=== PATIENT | female | born 1995 | race African-American/Black ===

== ENCOUNTER 2021-01-04 14:44 | Emergency (ER) | payer SELFPAY ==
[~2021-01-04] VITALS: Ht 157.5 cm; Wt 87.9 kg
[2021-01-04 14:45] VITALS: BP 133/74
== END 2021-01-04 19:15 | disposition left against medical advice (07) ==
LOC: M ED 14:44
DX: Z53.21 Procedure and treatment not carried out due to patient leaving prior to being seen by health care provider (principal)

== ENCOUNTER 2021-05-26 10:58 | Outpatient (CLI) | payer SELFPAY ==
[~2021-05-26] VITALS: Ht 154.9 cm; Wt 93.2 kg
[2021-05-26] MEDS ORDERED: MULTTAB20 PO (11:16)
[2021-05-26] MEDS ORDERED: HOME MED LIST COMPLETE! XX SCH (11:20)
[2021-05-26 13:02] LABS: BASO % 0.1 % (0.0-1.0); EOS % 0.5 % (0.0-3.0); HEMATOCRIT 31.1 % (36.0-47.0); HEMOGLOBIN 10.1 g/dl (12.0-15.5); LYMPH # 1.5 10^3/uL (1.5-5.0); LYMPH % 19.7 % (24.0-44.0); MEAN CORPUSCULAR HGB CONC 32.5 g/dl (32.0-36.5); MEAN CORPUSCULAR VOLUME 86.1 fl (80.0-96.0); MONO # 0.6 10^3/uL (0.0-0.8); MONO % 8.6 % (2.0-8.0); NEUTROPHILS # 5.2 10^3/uL (1.5-8.5); NEUTROPHILS % 70.7 % (36.0-66.0); PLATELET COUNT, AUTOMATED 227 10^3/uL (150-450); RED BLOOD COUNT 3.61 10^6/uL (4.00-5.40); WHITE BLOOD COUNT 7.4 10^3/uL (4.0-10.0)
[2021-05-26 14:21] LABS: HEPATITIS C VIRUS ABY INDEX 0.1 INDEX (<0.8); HIV 1&2 SCREEN CENTAUR NEGATIVE (NEGATIVE)
== END 2021-05-26 13:25 | disposition home or self-care (01) ==
LOC: M LDO 10:58
PROVIDERS: ATTEND Obstetrics & Gynecology
DX: O60.03 Preterm labor without delivery, third trimester (principal); O26.892 Other specified pregnancy related conditions, second trimester; R10.2 Pelvic and perineal pain; O09.32 Supervision of pregnancy with insufficient antenatal care, second trimester; Z3A.25 25 weeks gestation of pregnancy
CPT/HCPCS: 36415; 59025; 76811; 76820; 81001; 85025; 86762; 86780; 86803; 86850; 86900; 86901; 87340; 87389; G0378; G0463

== ENCOUNTER 2022-06-30 17:47 | Emergency (ER) | payer OTHER, SELFPAY ==
[~2022-06-30] VITALS: Ht 157.5 cm; Wt 86.8 kg
[~2022-06-30 17:47] MED LIST: MULTTAB20 PO
[2022-06-30] MEDS ORDERED: IBUP-1022 PO (19:26)
[2022-06-30 19:39] VITALS: BP 138/80
== END 2022-06-30 19:42 | disposition home or self-care (01) ==
LOC: M ED 17:47
DX: J06.9 Acute upper respiratory infection, unspecified (principal); R56.9 Unspecified convulsions

== ENCOUNTER 2022-07-29 08:51 | Emergency (ER) | payer MEDICAID, SELFPAY ==
[~2022-07-29] VITALS: Ht 157.5 cm; Wt 85.2 kg
[~2022-07-29 08:51] MED LIST changes: +IBUP-1022 PO
[2022-07-29 09:52] LABS: APPEARANCE, URINE CLEAR (CLEAR); BACTERIA, URINE AUTO NEGATIVE (NEGATIVE); BILIRUBIN, URINE AUTO NEGATIVE (NEGATIVE); BLOOD, URINE BLOOD NEGATIVE (NEGATIVE); COLOR, URINE YELLOW (YELLOW); GLUCOSE, URINE (UA) AUTO NEGATIVE (NEGATIVE); KETONE, URINE AUTO NEGATIVE (NEGATIVE); LEUKOCYTE ESTERASE, URINE AUTO 1+ (NEGATIVE); MUCUS, URINE SMALL (NEGATIVE); NITRITE, URINE AUTO NEGATIVE (NEGATIVE); PROTEIN, URINE AUTO NEGATIVE (NEGATIVE); RBC, URINE AUTO 0 /HPF (0-3); SPECIFIC GRAVITY URINE AUTO 1.012 (1.002-1.035); SQUAMOUS EPITHELIAL CELL UR AU 4 /HPF (0-6); UROBILINOGEN, URINE AUTO 0.2 mg/dL (0.0-2.0); WBC, URINE AUTO 3 /HPF (0-3)
[2022-07-29 10:14] LABS: BASO % 0.3 % (0.0-1.0); HEMATOCRIT 38.9 % (36.0-47.0); HEMOGLOBIN 12.3 g/dl (12.0-15.5); LYMPH # 1.4 10^3/uL (1.5-5.0); LYMPH % 34.9 % (24.0-44.0); MEAN CORPUSCULAR HGB CONC 31.6 g/dl (32.0-36.5); MEAN CORPUSCULAR VOLUME 88.6 fl (80.0-96.0); MONO # 0.3 10^3/uL (0.0-0.8); MONO % 8.7 % (2.0-8.0); NEUTROPHILS # 2.1 10^3/uL (1.5-8.5); NEUTROPHILS % 54.8 % (36.0-66.0); PLATELET COUNT, AUTOMATED 189 10^3/uL (150-450); RED BLOOD COUNT 4.39 10^6/uL (4.00-5.40); WHITE BLOOD COUNT 3.9 10^3/uL (4.0-10.0)
[2022-07-29 11:57] LABS: GC DNA AMPLIFICATION NEGATIVE (NEGATIVE)
[2022-07-29] MEDS ORDERED: AZITHROMYCIN 250MG TABLET PO ONE (12:25)
[2022-07-29] MEDS ORDERED: RHOGAM 300MCG (1500IU) INJ IM ONE ×2 (12:25→12:30)
[2022-07-29 13:17] VITALS: BP 127/83
[2022-07-29] MEDS ORDERED: METR-265 PO (14:21)
== END 2022-07-29 13:46 | disposition home or self-care (01) ==
LOC: M ED 08:51
DX: O99.511 Diseases of the respiratory system complicating pregnancy, first trimester (principal); Z3A.01 Less than 8 weeks gestation of pregnancy; O98.311 Other infections with a predominantly sexual mode of transmission complicating pregnancy, first trimester; O20.9 Hemorrhage in early pregnancy, unspecified; O99.351 Diseases of the nervous system complicating pregnancy, first trimester; G40.909 Epilepsy, unspecified, not intractable, without status epilepticus
CPT/HCPCS: 76801; 81001; 84702; 85025; 86850; 86900; 86901; 87086; 87210; 87428; 87810; 87850; 93976; 96372; 99283; J2790

== ENCOUNTER 2022-08-10 10:56 | Emergency (ER) | payer MEDICAID, SELFPAY ==
[~2022-08-10] VITALS: Ht 157.5 cm; Wt 85.5 kg
[~2022-08-10 10:56] MED LIST changes: +METR-265 PO
[2022-08-10 12:43] LABS: BASO % 0.2 % (0.0-1.0); EOS % 0.4 % (0.0-3.0); HEMATOCRIT 33.6 % (36.0-47.0); HEMOGLOBIN 11.1 g/dl (12.0-15.5); LYMPH # 1.2 10^3/uL (1.5-5.0); LYMPH % 25.8 % (24.0-44.0); MEAN CORPUSCULAR HEMOGLOBIN 28.8 pg (27.0-33.0); MONO # 0.4 10^3/uL (0.0-0.8); MONO % 9.1 % (2.0-8.0); NEUTROPHILS # 2.9 10^3/uL (1.5-8.5); NEUTROPHILS % 64.3 % (36.0-66.0); PLATELET COUNT, AUTOMATED 189 10^3/uL (150-450); RED BLOOD COUNT 3.86 10^6/uL (4.00-5.40); WHITE BLOOD COUNT 4.5 10^3/uL (4.0-10.0)
[2022-08-10 13:05] LABS: BLOOD UREA NITROGEN 9 MG/DL (9-23); CARBON DIOXIDE LEVEL 24 MMOL/L (20-31); CHLORIDE LEVEL 104 MMOL/L (98-107); CREATININE FOR GFR 0.45 MG/DL (0.55-1.30); GLOMERULAR FILTRATION RATE > 60.0 (>60); GLUCOSE, FASTING 74 MG/DL (60-100); POTASSIUM SERUM 3.9 MMOL/L (3.5-5.1); SODIUM LEVEL 137 MMOL/L (136-145)
[2022-08-10 13:32] VITALS: BP 124/66
[2022-08-10 14:55] LABS: HCG, SERUM QUANTITATIVE 342217.1 MIU/ML (<4.2)
== END 2022-08-10 13:32 | disposition home or self-care (01) ==
LOC: M ED 10:56
DX: O20.9 Hemorrhage in early pregnancy, unspecified (principal); Z3A.09 9 weeks gestation of pregnancy

== ENCOUNTER 2022-10-11 13:58 | Emergency (ER) | payer OTHER, SELFPAY ==
[~2022-10-11] VITALS: Ht 157.5 cm; Wt 89.5 kg
[2022-10-11] MEDS ORDERED: D-3-50003 (14:23)
[2022-10-11 14:56] LABS: BASO % 0.2 % (0.0-1.0); EOS % 0.4 % (0.0-3.0); HEMATOCRIT 32.1 % (36.0-47.0); HEMOGLOBIN 10.6 g/dl (12.0-15.5); LYMPH # 1.3 10^3/uL (1.5-5.0); LYMPH % 26.5 % (24.0-44.0); MEAN CORPUSCULAR HEMOGLOBIN 28.6 pg (27.0-33.0); MEAN CORPUSCULAR VOLUME 86.8 fl (80.0-96.0); MONO # 0.3 10^3/uL (0.0-0.8); MONO % 7.2 % (2.0-8.0); NEUTROPHILS # 3.1 10^3/uL (1.5-8.5); NEUTROPHILS % 65.5 % (36.0-66.0); PLATELET COUNT, AUTOMATED 196 10^3/uL (150-450); WHITE BLOOD COUNT 4.7 10^3/uL (4.0-10.0)
[2022-10-11 15:26] LABS: AMPHETAMINES LEVEL URINE NEGATIVE (NEGATIVE); BARBITURATES URINE NEGATIVE (NEGATIVE); PHENCYCLIDINE URINE NEGATIVE (NEGATIVE)
[2022-10-11 15:27] LABS: BENZODIAZEPINES URINE NEGATIVE (NEGATIVE); CANNABINOIDS URINE NEGATIVE (NEGATIVE); COCAINE METABOLITE URINE NEGATIVE (NEGATIVE); METHADONE URINE NEGATIVE (NEGATIVE); OPIATES URINE NEGATIVE (NEGATIVE)
[2022-10-11 15:28] LABS: ALBUMIN 2.8 G/DL (3.2-5.2); ALKALINE PHOSPHATASE 47 U/L (46-116); ALT/SGPT < 9 U/L (7.0-40); AST/SGOT < 8 U/L (<34); BILIRUBIN,DIRECT < 0.1 MG/DL (<0.4); BILIRUBIN,TOTAL 0.3 MG/DL (0.3-1.2); BLOOD UREA NITROGEN 9 MG/DL (9-23); CALCIUM LEVEL 8.7 MG/DL (8.5-10.1); CARBON DIOXIDE LEVEL 23 MMOL/L (20-31); CHLORIDE LEVEL 108 MMOL/L (98-107); CREATININE FOR GFR 0.45 MG/DL (0.55-1.30); GLOMERULAR FILTRATION RATE > 60.0 (>60); GLUCOSE, FASTING 71 MG/DL (60-100); POTASSIUM SERUM 4.5 MMOL/L (3.5-5.1); SODIUM LEVEL 138 MMOL/L (136-145); TOTAL PROTEIN 6.1 G/DL (5.7-8.2)
[2022-10-11] MEDS ORDERED: MAALOX 30 ML SUSP *UDC PO ONE (15:35)
[2022-10-11 15:47] LABS: LIPASE 30 U/L (12-53)
[2022-10-11] MEDS ORDERED: KEPP1TAB PO (17:13)
[2022-10-11] MEDS ORDERED: levETIRAcetam 250MG TABLET (KEPPRA) PO ONE (17:15)
[2022-10-11 17:58] VITALS: BP 123/68; TEMP 97.1; O2SAT 96
== END 2022-10-11 18:01 | disposition home or self-care (01) ==
LOC: EDBD 13:58 → M ED 13:58
DX: O26.892 Other specified pregnancy related conditions, second trimester (principal); R10.13 Epigastric pain; Z3A.17 17 weeks gestation of pregnancy; O99.352 Diseases of the nervous system complicating pregnancy, second trimester

== ENCOUNTER 2022-11-11 04:58 | Outpatient (CLI) | payer OTHER ==
[~2022-11-11] VITALS: Ht 157.5 cm; Wt 92.5 kg
[~2022-11-11 04:58] MED LIST changes: +D-3-50003; +KEPP1TAB PO
[2022-11-11 05:13] VITALS: BP 130/73; TEMP 98
[2022-11-11 06:08] LABS: APPEARANCE, URINE CLOUDY (CLEAR); BACTERIA, URINE AUTO 2+ (NEGATIVE); BILIRUBIN, URINE AUTO NEGATIVE (NEGATIVE); BLOOD, URINE BLOOD NEGATIVE (NEGATIVE); COLOR, URINE YELLOW (YELLOW); GLUCOSE, URINE (UA) AUTO NEGATIVE (NEGATIVE); KETONE, URINE AUTO NEGATIVE (NEGATIVE); LEUKOCYTE ESTERASE, URINE AUTO 2+ (NEGATIVE); MUCUS, URINE SMALL (NEGATIVE); NITRITE, URINE AUTO NEGATIVE (NEGATIVE); PROTEIN, URINE AUTO NEGATIVE (NEGATIVE); RBC, URINE AUTO 3 /HPF (0-3); SPECIFIC GRAVITY URINE AUTO 1.013 (1.002-1.035); SQUAMOUS EPITHELIAL CELL UR AU 32 /HPF (0-6); UROBILINOGEN, URINE AUTO 0.2 mg/dL (0.0-2.0); WBC, URINE AUTO 7 /HPF (0-3)
[2022-11-11 07:35] LABS: GC DNA AMPLIFICATION NEGATIVE (NEGATIVE)
[2022-11-11 07:44] VITALS: BP 123/76; TEMP 98.5
== END 2022-11-11 08:45 | disposition home or self-care (01) ==
LOC: M LDO 04:58
PROVIDERS: ATTEND Advanced Practice Midwife
DX: O26.892 Other specified pregnancy related conditions, second trimester (principal); R10.31 Right lower quadrant pain; O9A.312 Physical abuse complicating pregnancy, second trimester; O98.312 Other infections with a predominantly sexual mode of transmission complicating pregnancy, second trimester; O99.352 Diseases of the nervous system complicating pregnancy, second trimester; O35.2 Maternal care for (suspected) hereditary disease in fetus; Z87.59 Personal history of other complications of pregnancy, childbirth and the puerperium; Z3A.22 22 weeks gestation of pregnancy
CPT/HCPCS: 59025; 81001; 87086; 87661; 87810; 87850; G0463

== ENCOUNTER → 2022-12-15 | Outpatient (CLI) | payer OTHER ==
[2022-12-15 15:01] LABS: HEMATOCRIT 34.5 % (36.0-47.0); MEAN CORPUSCULAR HGB CONC 31.9 g/dl (32.0-36.5); PLATELET COUNT, AUTOMATED 178 10^3/uL (150-450); RED BLOOD COUNT 3.79 10^6/uL (4.00-5.40); WHITE BLOOD COUNT 5.8 10^3/uL (4.0-10.0)
== END ==
LOC: M PLALAB 10:00
PROVIDERS: ATTEND Advanced Practice Midwife
DX: Z34.82 Encounter for supervision of other normal pregnancy, second trimester (principal)

== ENCOUNTER 2023-02-13 15:33 | Outpatient (CLI) | payer OTHER, MEDICAID ==
[2023-02-13] VITALS (8 sets, daily range): BP systolic 117–183; BP diastolic 58–87
[~2023-02-13] VITALS: Ht 154.9 cm; Wt 92.9 kg
[~2023-02-13 15:33] MED LIST changes: -D-3-50003; +D-3-50003 PO; +FOLI1TAB11 PO
[2023-02-13] MEDS ORDERED: MIRT1TAB16 PO (18:42)
[2023-02-13] MEDS ORDERED: BUPR-70 PO (18:42)
[2023-02-13 18:47] LABS: HEMATOCRIT 34.2 % (36.0-47.0); HEMOGLOBIN 11.2 g/dl (12.0-15.5); MEAN CORPUSCULAR HEMOGLOBIN 29.5 pg (27.0-33.0); MEAN CORPUSCULAR HGB CONC 32.7 g/dl (32.0-36.5); PLATELET COUNT, AUTOMATED 170 10^3/uL (150-450); WHITE BLOOD COUNT 7.1 10^3/uL (4.0-10.0)
[2023-02-13 19:10] LABS: URIC ACID 4.5 MG/DL (3.1-7.8)
[2023-02-13 19:12] LABS: LDH LACTATE DEHYDROGENASE 146 U/L (120-246)
[2023-02-13 19:13] LABS: ALT/SGPT 12 U/L (7.0-40); AST/SGOT 16 U/L (<34); BILIRUBIN,TOTAL 0.3 MG/DL (0.3-1.2); CREATININE FOR GFR 0.47 MG/DL (0.55-1.30); GLOMERULAR FILTRATION RATE > 60.0 (>60)
[2023-02-13 19:20] LABS: TOTAL PROTEIN,RANDOM URINE 25.8 MG/DL (0.0-14.0)
[2023-02-13 19:25] LABS: CREATININE,RANDOM URINE 172.2 MG/DL
[2023-02-13 20:35] LABS: CHLAMYDIA DNA AMPLIFICATION NEGATIVE (NEGATIVE); GC DNA AMPLIFICATION NEGATIVE (NEGATIVE)
== END 2023-02-13 19:28 | disposition home or self-care (01) ==
LOC: M LDO 15:33
PROVIDERS: ATTEND Obstetrics & Gynecology
DX: O99.613 Diseases of the digestive system complicating pregnancy, third trimester (principal); K59.00 Constipation, unspecified; O99.343 Other mental disorders complicating pregnancy, third trimester; F32.A Depression, unspecified; Z03.71 Encounter for suspected problem with amniotic cavity and membrane ruled out; Z3A.35 35 weeks gestation of pregnancy; Z87.59 Personal history of other complications of pregnancy, childbirth and the puerperium
CPT/HCPCS: 36415; 59025; 82247; 82570; 83615; 84156; 84450; 84460; 84550; 85027; 87661; 87810; 87850; G0463

== ENCOUNTER 2023-02-24 04:25 | Outpatient (CLI) | payer OTHER, MEDICAID ==
[~2023-02-24] VITALS: Ht 157.5 cm; Wt 93.0 kg
[~2023-02-24 04:25] MED LIST changes: +BUPR-70 PO; +MIRT1TAB16 PO
[2023-02-24 04:41] VITALS: BP 131/80
[2023-02-24] MEDS ORDERED: BUPR300T92 PO (04:56)
[2023-02-24] MEDS ORDERED: HOME MED LIST COMPLETE! XX SCH (05:00)
[2023-02-24 05:10] VITALS: BP 124/79
[2023-02-24 05:37] VITALS: BP 143/78
[2023-02-24 06:37] VITALS: BP 136/86
== END 2023-02-24 08:00 | disposition home or self-care (01) ==
LOC: M LDO 04:25
PROVIDERS: ATTEND Advanced Practice Midwife
DX: O47.1 False labor at or after 37 completed weeks of gestation (principal); O09.33 Supervision of pregnancy with insufficient antenatal care, third trimester; Z3A.37 37 weeks gestation of pregnancy
CPT/HCPCS: 59025; 87081; G0463

== ENCOUNTER 2023-03-08 18:14 | Inpatient (IN) | payer OTHER, MEDICAID ==
[~2023-03-08] VITALS: Ht 157.5 cm; Wt 98.2 kg
[~2023-03-08 18:14] MED LIST changes: +BUPR300T92 PO
[2023-03-08 18:47] VITALS: BP 137/84
[2023-03-08] MEDS ORDERED: HOME MED LIST COMPLETE! XX SCH (19:00)
[2023-03-08] MEDS ORDERED: OXYTOCIN DRIP 30 UNITS in IV 1 EA IV PRN (19:15)
[2023-03-08] MEDS ORDERED: LIDOCAINE 1% MDV 20ML VIAL INFIL PRN (19:15)
[2023-03-08 19:46] VITALS: BP 146/81
[2023-03-08] MEDS: miSOPROStol 50MCG 1/2 TABLET SL SCH (19:47)
[2023-03-08 19:54] LABS: HEMATOCRIT 34.1 % (36.0-47.0); HEMOGLOBIN 10.9 g/dl (12.0-15.5); MEAN CORPUSCULAR VOLUME 90.7 fl (80.0-96.0); PLATELET COUNT, AUTOMATED 187 10^3/uL (150-450); RED BLOOD COUNT 3.76 10^6/uL (4.00-5.40); WHITE BLOOD COUNT 6.5 10^3/uL (4.0-10.0)
[2023-03-08 20:50] VITALS: BP 122/67
[2023-03-08 22:43] VITALS: BP 128/74
[2023-03-08] MEDS ORDERED: NALBUPHINE HCL 1MG/0.1ML (100MG/10ML) MDV IV ONE (23:55)
[2023-03-09] VITALS (48 sets, daily range): BP systolic 109–163; BP diastolic 53–97; O2SAT 98
[2023-03-09] MEDS: levETIRAcetam 250MG TABLET (KEPPRA) PO SCH ×3 (00:12→21:29)
[2023-03-09] MEDS: miSOPROStol 50MCG 1/2 TABLET SL SCH ×2 (00:12→05:46)
[2023-03-09] MEDS ORDERED: PENICILLIN G POTASSIUM 5 MU IV 5 MU in D5W MINI-BAG PLUS 100 ML IV STA (09:21)
[2023-03-09] MEDS ORDERED: TRANEXAMIC ACID INJection 1,000 MG in NS 100 ML IV PRN (09:25)
[2023-03-09] MEDS ORDERED: CARBOPROST TROMETHAMINE 250 MCG/ML AMP IM PRN (09:25)
[2023-03-09] MEDS ORDERED: METHYLERGONOVINE MALEATE 0.2MG/ML 1ML VIAL IM PRN (09:25)
[2023-03-09] MEDS ORDERED: OXYTOCIN DRIP 30 UNITS in IV 1 EA IV SCH (09:25)
[2023-03-09] MEDS: LR 1,000 ML IV SCH ×3 (09:45→17:46)
[2023-03-09] MEDS: buPROPion **XL** TABLET 150MG (WELLBUTRIN XL) PO SCH (09:52)
[2023-03-09] MEDS: PEN G POT 3,000,000 UNIT/50 ML 3,000,000 UNIT in IV 1 EA IV SCH ×2 (14:09→18:19)
[2023-03-09] MEDS ORDERED: LR 500 ML IV PRN (14:50)
[2023-03-09] MEDS ORDERED: FENTANYL/ROPIVACAINE/NACL BAG 100 ML EPIDURAL SCH (14:50)
[2023-03-09] MEDS ORDERED: NALOXONE INJ 0.4MG/1ML VIAL IV PRN (14:50)
[2023-03-09] MEDS ORDERED: ONDANSETRON 4MG 2ML VIAL IV PRN (14:50)
[2023-03-09] MEDS ORDERED: diphenhydrAMINE 50MG/ML VIAL IV PRN (14:50)
[2023-03-09] MEDS ORDERED: ePHEDrine SULFATE 25 MG/5 ML(5MG/ML) SYRINGE IVP PRN (14:50)
[2023-03-09] MEDS ORDERED: EPIDURAL/PCA KEYS XX PRN (14:50)
[2023-03-09] MEDS ORDERED: DIBUCAINE 1% OINTMENT 30GM TOP PRN (20:55)
[2023-03-09] MEDS ORDERED: ANUSOL HC CREAM 30GM TOP PRN (20:55)
[2023-03-09] MEDS ORDERED: METHYLERGONOVINE MALEATE 0.2 MG TAB PO PRN (20:55)
[2023-03-09] MEDS ORDERED: ACETAMINOPHEN TAB 650MG DOSE (2X325MG) PO PRN (20:55)
[2023-03-09] MEDS ORDERED: RHOGAM 300MCG (1500IU) INJ IM SCH (20:55)
[2023-03-09] MEDS ORDERED: DOCUSATE SODIUM 100MG CAPSULE PO PRN (20:55)
[2023-03-09] MEDS ORDERED: ACETAMINOPHEN 500 MG TAB PO PRN (20:55)
[2023-03-09] MEDS: IBUPROFEN 600MG TAB PO PRN (22:55)
[2023-03-10] MEDS ORDERED: ONDANSETRON 4MG ORAL DISINTEGRATING TAB PO PRN (00:20)
[2023-03-10 06:10] VITALS: BP 120/67; O2SAT 100
[2023-03-10] MEDS: IBUPROFEN 800 MG TAB PO PRN ×2 (09:54→18:17)
[2023-03-10] MEDS: PRENATAL VITAMINS CHEWABLE TABLET PO SCH (09:54)
[2023-03-10] MEDS: levETIRAcetam 250MG TABLET (KEPPRA) PO SCH ×2 (09:54→20:25)
[2023-03-10] MEDS: buPROPion **XL** TABLET 150MG (WELLBUTRIN XL) PO SCH (10:01)
[2023-03-11 06:00] VITALS: BP 110/53; O2SAT 98
[2023-03-11] MEDS ORDERED: MEASLES,MUMPS,RUBELLA VACCINE INJ (MMR-II) SC.IMMUN ONE (09:00)
[2023-03-11] MEDS: levETIRAcetam 250MG TABLET (KEPPRA) PO SCH (09:17)
[2023-03-11] MEDS: PRENATAL VITAMINS CHEWABLE TABLET PO SCH (09:17)
[2023-03-11] MEDS: buPROPion **XL** TABLET 150MG (WELLBUTRIN XL) PO SCH (09:17)
[2023-03-11] MEDS: IBUPROFEN 600MG TAB PO PRN (09:17)
== END 2023-03-11 14:41 | disposition home or self-care (01) | DRG 560 ==
LOC: M LDI 18:14 → M OBS 03-09 22:30
PROVIDERS: ADMIT Specialist; ATTEND Advanced Practice Midwife
PROC: 3E0P7GC Introduction of Other Therapeutic Substance into Female Reproductive, Via Natural or Artificial Opening (ICD-10-PCS; 2023-03-08)
PROC: 10E0XZZ Delivery of Products of Conception, External Approach (ICD-10-PCS; principal; 2023-03-09)
DX: O99.354 Diseases of the nervous system complicating childbirth (principal); O69.81X0 Labor and delivery complicated by cord around neck, without compression, not applicable or unspecified; Z3A.39 39 weeks gestation of pregnancy; Z79.899 Other long term (current) drug therapy; Z37.0 Single live birth; O99.824 Streptococcus B carrier state complicating childbirth

== ENCOUNTER → 2023-04-06 | Outpatient (REF) | payer OTHER, MEDICAID ==
[2023-04-06 16:59] LABS: APPEARANCE, URINE CLEAR (CLEAR); BACTERIA, URINE AUTO NEGATIVE (NEGATIVE); BILIRUBIN, URINE AUTO NEGATIVE (NEGATIVE); BLOOD, URINE BLOOD NEGATIVE (NEGATIVE); COLOR, URINE AMBER (YELLOW); GLUCOSE, URINE (UA) AUTO NEGATIVE (NEGATIVE); KETONE, URINE AUTO NEGATIVE (NEGATIVE); LEUKOCYTE ESTERASE, URINE AUTO NEGATIVE (NEGATIVE); NITRITE, URINE AUTO POSITIVE (NEGATIVE); PROTEIN, URINE AUTO NEGATIVE (NEGATIVE); RBC, URINE AUTO 0 /HPF (0-3); SQUAMOUS EPITHELIAL CELL UR AU 0 /HPF (0-6); WBC, URINE AUTO 2 /HPF (0-3)
== END ==
LOC: M LAB REF 16:13
PROVIDERS: ATTEND Physician Assistant
DX: N39.0 Urinary tract infection, site not specified (principal)

== ENCOUNTER 2023-06-29 10:42 | Emergency (ER) | payer MEDICAID, OTHER ==
[2023-06-29 11:27] LABS: HEMATOCRIT 39.4 % (36.0-47.0); HEMOGLOBIN 12.6 g/dl (12.0-15.5); MEAN CORPUSCULAR VOLUME 90.8 fl (80.0-96.0); PLATELET COUNT, AUTOMATED 196 10^3/uL (150-450); RED BLOOD COUNT 4.34 10^6/uL (4.00-5.40); WHITE BLOOD COUNT 3.4 10^3/uL (4.0-10.0)
[2023-06-29 11:49] LABS: ETHYL ALCOHOL (ETHANOL) < 0.003 % (0.000-0.010)
[2023-06-29 11:50] LABS: SALICYLATE LEVEL < 3.0 MG/DL (<30)
[2023-06-29 11:51] LABS: ALBUMIN 3.9 G/DL (3.2-5.2); ALKALINE PHOSPHATASE 70 U/L (46-116); ALT/SGPT 17 U/L (7.0-40); AST/SGOT 14 U/L (<34); BILIRUBIN,DIRECT < 0.1 MG/DL (<0.4); BILIRUBIN,TOTAL 0.3 MG/DL (0.3-1.2); BLOOD UREA NITROGEN 9 MG/DL (9-23); CALCIUM LEVEL 9.2 MG/DL (8.5-10.1); CARBON DIOXIDE LEVEL 28 MMOL/L (20-31); CHLORIDE LEVEL 108 MMOL/L (98-107); GLOMERULAR FILTRATION RATE > 60.0 (>60); GLUCOSE, FASTING 88 MG/DL (60-100); POTASSIUM SERUM 4.6 MMOL/L (3.5-5.1); SODIUM LEVEL 141 MMOL/L (136-145); TOTAL PROTEIN 7.2 G/DL (5.7-8.2)
[2023-06-29 11:53] LABS: THYROID STIMULATING HORMONE 1.531 uIU/ML (0.55-4.78)
[2023-06-29 11:54] LABS: HCG, SERUM QUALITATIVE NEGATIVE (NEGATIVE)
[2023-06-29 12:26] LABS: AMPHETAMINES LEVEL URINE NEGATIVE (NEGATIVE); BARBITURATES URINE NEGATIVE (NEGATIVE); BENZODIAZEPINES URINE NEGATIVE (NEGATIVE); CANNABINOIDS URINE NEGATIVE (NEGATIVE); COCAINE METABOLITE URINE NEGATIVE (NEGATIVE); METHADONE URINE NEGATIVE (NEGATIVE); OPIATES URINE NEGATIVE (NEGATIVE); PHENCYCLIDINE URINE NEGATIVE (NEGATIVE)
[2023-06-29] MEDS ORDERED: MIRT-11 PO (12:31)
[2023-06-29] MEDS ORDERED: KEPP10002 PO (12:31)
[2023-06-29] MEDS ORDERED: MONO0.25 PO (12:33)
[2023-06-29] MEDS ORDERED: CARB200T98 PO (12:33)
[2023-06-29] MEDS ORDERED: HOME MED LIST COMPLETE! XX SCH (12:35)
[2023-06-29] MEDS: levETIRAcetam 250MG TABLET (KEPPRA) PO ONE (13:20)
[2023-06-29] MEDS: carBAMazepine XR 200 MG TAB PO ONE (13:36)
[2023-06-29 16:11] VITALS: BP 152/99; TEMP 97.4; O2SAT 99
== END 2023-06-29 16:32 | disposition home or self-care (01) ==
LOC: M ED 10:42
DX: F43.0 Acute stress reaction (principal); F32.A Depression, unspecified; G40.89 Other seizures; Z88.8 Allergy status to other drugs, medicaments and biological substances; Z79.899 Other long term (current) drug therapy

== ENCOUNTER → 2023-07-12 | Outpatient (CLI) | payer OTHER ==
[~2023-07-12] MED LIST changes: +CARB200T98 PO; +KEPP10002 PO; +MIRT-11 PO; +MONO0.25 PO
[2023-07-12 14:07] LABS: CHOLESTEROL RISK RATIO 2.1 (<5); HDL CHOLESTEROL 58.5 MG/DL (>40); LDL CHOLESTEROL 38.9 MG/DL (<100); NON-HDL-C 64.5 MG/DL
== END ==
LOC: M PLALAB 11:02
PROVIDERS: ATTEND Psychiatry & Neurology Psychiatry
DX: F43.10 Post-traumatic stress disorder, unspecified (principal); Z65.9 Problem related to unspecified psychosocial circumstances; F60.9 Personality disorder, unspecified; F41.1 Generalized anxiety disorder

== ENCOUNTER 2023-07-16 21:16 | Emergency (ER) | payer OTHER ==
[~2023-07-16] VITALS: Ht 157.5 cm; Wt 92.3 kg
[2023-07-17 04:14] VITALS: BP 134/80; TEMP 98.6; O2SAT 99
[2023-07-17] MEDS ORDERED: BENZ200C70 PO (06:54)
[2023-07-17] MEDS ORDERED: MUCI600T31 PO (06:54)
== END 2023-07-17 07:01 | disposition home or self-care (01) ==
LOC: M ED 21:16
DX: J06.9 Acute upper respiratory infection, unspecified (principal); Z88.8 Allergy status to other drugs, medicaments and biological substances; Z79.899 Other long term (current) drug therapy

== ENCOUNTER 2023-10-05 16:10 | Emergency (ER) | payer MEDICAID, OTHER ==
[~2023-10-05] VITALS: Ht 154.9 cm; Wt 94.5 kg
[~2023-10-05 16:10] MED LIST changes: +BENZ200C70 PO; +BUPR-597 PO; -BUPR300T92 PO; +CARB-115 PO; -CARB200T98 PO; +MUCI600T31 PO
[2023-10-05] MEDS ORDERED: FOLI1TAB11 (16:21)
[2023-10-05] MEDS ORDERED: LABE100T6 (16:21)
[2023-10-05 17:20] LABS: BASO % 0.2 % (0.0-1.0); EOS % 0.6 % (0.0-3.0); HEMATOCRIT 34.8 % (36.0-47.0); HEMOGLOBIN 11.5 g/dl (12.0-15.5); LYMPH # 1.3 10^3/uL (1.5-5.0); LYMPH % 26.5 % (24.0-44.0); MEAN CORPUSCULAR HEMOGLOBIN 29.6 pg (27.0-33.0); MEAN CORPUSCULAR VOLUME 89.5 fl (80.0-96.0); MONO # 0.3 10^3/uL (0.0-0.8); MONO % 6.3 % (2.0-8.0); NEUTROPHILS # 3.3 10^3/uL (1.5-8.5); NEUTROPHILS % 66.2 % (36.0-66.0); PLATELET COUNT, AUTOMATED 196 10^3/uL (150-450); RED BLOOD COUNT 3.89 10^6/uL (4.00-5.40); WHITE BLOOD COUNT 4.9 10^3/uL (4.0-10.0)
[2023-10-05 17:44] LABS: LIPASE 29 U/L (12-53)
[2023-10-05 17:46] LABS: ALBUMIN 3.4 G/DL (3.2-5.2); ALKALINE PHOSPHATASE 62 U/L (46-116); ALT/SGPT 17 U/L (7.0-40); AST/SGOT 9 U/L (<34); BILIRUBIN,DIRECT < 0.1 MG/DL (<0.4); BILIRUBIN,TOTAL 0.2 MG/DL (0.3-1.2); BLOOD UREA NITROGEN 10 MG/DL (9-23); CALCIUM LEVEL 9.3 MG/DL (8.5-10.1); CARBON DIOXIDE LEVEL 24 MMOL/L (20-31); CHLORIDE LEVEL 108 MMOL/L (98-107); CREATININE FOR GFR 0.67 MG/DL (0.55-1.30); GLOMERULAR FILTRATION RATE > 60.0 (>60); GLUCOSE, FASTING 97 MG/DL (60-100); SODIUM LEVEL 138 MMOL/L (136-145); TOTAL PROTEIN 6.6 G/DL (5.7-8.2)
[2023-10-05] MEDS ORDERED: cefTRIAXone SOD 1 GM in D5W MINI-BAG PLUS 50 ML IV ONE (18:15)
[2023-10-05] MEDS ORDERED: KETOROLAC 30 MG/ML 1ML VIAL IV ONE (18:15)
[2023-10-05 20:09] LABS: Trichomonas vaginalis (AMP) NOT DETECTED (NEGATIVE)
[2023-10-05 20:33] LABS: GC DNA AMPLIFICATION NEGATIVE (NEGATIVE)
[2023-10-05] MEDS ORDERED: CEPH500C PO (21:13)
[2023-10-05 21:18] VITALS: BP 122/68; TEMP 99.3; O2SAT 99
[2023-10-05] MEDS: CEPHALEXIN 500 MG CAP PO ONE (21:19)
[2023-10-07] MEDS ORDERED: NITR100C3 PO (08:10)
== END 2023-10-05 21:26 | disposition home or self-care (01) ==
LOC: M ED 16:10
DX: O00.01 Abdominal pregnancy with intrauterine pregnancy (principal); Z3A.08 8 weeks gestation of pregnancy; N39.0 Urinary tract infection, site not specified; I10 Essential (primary) hypertension; G40.909 Epilepsy, unspecified, not intractable, without status epilepticus; Z88.8 Allergy status to other drugs, medicaments and biological substances; Z79.2 Long term (current) use of antibiotics; Z79.899 Other long term (current) drug therapy

== ENCOUNTER 2024-02-10 12:50 | Outpatient (CLI) | payer OTHER, MEDICAID ==
[~2024-02-10] VITALS: Ht 154.9 cm; Wt 96.8 kg
[~2024-02-10 12:50] MED LIST changes: +CEPH500C PO; +FOLI1TAB11; +LABE100T6; +NITR100C3 PO
[2024-02-10] MEDS ORDERED: TEGR1TAB PO (13:21)
[2024-02-10] MEDS ORDERED: ASPI81CH33 PO (13:21)
[2024-02-10] MEDS ORDERED: ARIP1TAB10 PO (13:21)
[2024-02-10] MEDS ORDERED: LABE100T40 PO (13:21)
[2024-02-10] MEDS ORDERED: VITA100093 PO (13:21)
[2024-02-10 13:22] VITALS: BP 115/67
[2024-02-10] MEDS ORDERED: HOME MED LIST COMPLETE! XX SCH (13:25)
[2024-02-10 14:00] LABS: APPEARANCE, URINE HAZY (CLEAR); BACTERIA, URINE AUTO NEGATIVE (NEGATIVE); BILIRUBIN, URINE AUTO NEGATIVE (NEGATIVE); BLOOD, URINE BLOOD NEGATIVE (NEGATIVE); COLOR, URINE YELLOW (YELLOW); GLUCOSE, URINE (UA) AUTO NEGATIVE (NEGATIVE); KETONE, URINE AUTO NEGATIVE (NEGATIVE); LEUKOCYTE ESTERASE, URINE AUTO TRACE (NEGATIVE); MUCUS, URINE SMALL (NEGATIVE); NITRITE, URINE AUTO NEGATIVE (NEGATIVE); PROTEIN, URINE AUTO 1+ mg/dL (NEGATIVE); RBC, URINE AUTO 1 /HPF (0-3); SPECIFIC GRAVITY URINE AUTO 1.018 (1.002-1.035); SQUAMOUS EPITHELIAL CELL UR AU 16 /HPF (0-6); UROBILINOGEN, URINE AUTO 0.2 mg/dL (0.0-2.0); WBC, URINE AUTO 2 /HPF (0-3)
== END 2024-02-10 14:55 | disposition home or self-care (01) ==
LOC: M LDO 12:50
PROVIDERS: ATTEND Obstetrics & Gynecology
DX: O26.892 Other specified pregnancy related conditions, second trimester (principal); O99.352 Diseases of the nervous system complicating pregnancy, second trimester; O99.342 Other mental disorders complicating pregnancy, second trimester; O10.012 Pre-existing essential hypertension complicating pregnancy, second trimester; G40.909 Epilepsy, unspecified, not intractable, without status epilepticus; R25.2 Cramp and spasm; Z3A.26 26 weeks gestation of pregnancy
CPT/HCPCS: 59025; 81001; 87086; G0463

== ENCOUNTER → 2024-02-22 | Outpatient (REF) | payer OTHER ==
[~2024-02-22] MED LIST changes: +ARIP1TAB10 PO; +ASPI81CH33 PO; +LABE100T40 PO; +TEGR1TAB PO; +VITA100093 PO
== END ==
LOC: M PLALAB 14:59
PROVIDERS: ATTEND Nurse Practitioner Family
DX: R30.0 Dysuria (principal)

== ENCOUNTER → 2024-02-29 | Outpatient (CLI) | payer OTHER | LOC: M RAD 12:22 | PROVIDERS: ATTEND Nurse Practitioner Family | DX: Z34.83 Encounter for supervision of other normal pregnancy, third trimester (principal) ==

== ENCOUNTER 2024-03-15 15:25 | Outpatient (CLI) | payer OTHER, MEDICAID ==
[~2024-03-15] VITALS: Ht 154.9 cm; Wt 99.0 kg
[2024-03-15] MEDS ORDERED: PRENTAB9 PO (15:37)
[2024-03-15 15:40] VITALS: BP 133/62
[2024-03-15] MEDS: ACETAMINOPHEN 500 MG TAB PO ONE (16:22)
[2024-03-15 17:58] VITALS: BP 129/59
== END 2024-03-15 18:09 | disposition home or self-care (01) ==
LOC: M LDO 15:25
PROVIDERS: ATTEND Obstetrics & Gynecology
DX: O10.013 Pre-existing essential hypertension complicating pregnancy, third trimester (principal); O26.893 Other specified pregnancy related conditions, third trimester; R10.2 Pelvic and perineal pain; R51.9 Headache, unspecified; Z3A.31 31 weeks gestation of pregnancy
CPT/HCPCS: 59025; G0463

== ENCOUNTER 2024-03-26 11:31 | Outpatient (CLI) | payer OTHER, MEDICAID ==
[~2024-03-26] VITALS: Ht 157.5 cm; Wt 98.7 kg
[~2024-03-26 11:31] MED LIST changes: +PRENTAB9 PO
[2024-03-26] MEDS ORDERED: ACET-907 PO (11:47)
[2024-03-26] MEDS ORDERED: HOME MED LIST COMPLETE! XX SCH (11:50)
[2024-03-26 11:55] VITALS: BP 124/63; O2SAT 94
[2024-03-26 12:38] LABS: KETONE, URINE AUTO RFX 1+ mg/dL (NEGATIVE); LEUKOCYTE ESTERASE UR AUTO RFX NEGATIVE (NEGATIVE)
[2024-03-26 12:56] VITALS: BP 121/56
[2024-03-26 14:21] VITALS: BP 118/75
== END 2024-03-26 14:40 | disposition home or self-care (01) ==
LOC: M LDO 11:31
PROVIDERS: ATTEND Obstetrics & Gynecology
DX: O26.893 Other specified pregnancy related conditions, third trimester (principal); O99.283 Endocrine, nutritional and metabolic diseases complicating pregnancy, third trimester; O10.013 Pre-existing essential hypertension complicating pregnancy, third trimester; R10.2 Pelvic and perineal pain; E86.0 Dehydration; Z87.51 Personal history of pre-term labor; Z87.59 Personal history of other complications of pregnancy, childbirth and the puerperium; Z3A.33 33 weeks gestation of pregnancy; Z79.82 Long term (current) use of aspirin; Z88.8 Allergy status to other drugs, medicaments and biological substances
CPT/HCPCS: 59025; 81001; G0463

== ENCOUNTER 2024-04-01 12:36 | Outpatient (CLI) | payer MEDICAID, OTHER ==
[~2024-04-01] VITALS: Ht 157.5 cm; Wt 98.6 kg
[~2024-04-01 12:36] MED LIST changes: +ACET-907 PO
[2024-04-01] MEDS ORDERED: HOME MED LIST COMPLETE! XX SCH (12:50)
[2024-04-01 12:59] VITALS: BP 134/70
[2024-04-01 13:28] VITALS: BP 120/55
[2024-04-01 13:43] VITALS: BP 108/57
[2024-04-01 13:58] VITALS: BP 110/58
[2024-04-01] MEDS: ACETAMINOPHEN 500 MG TAB PO ONE (14:03)
[2024-04-01 14:18] LABS: HEMATOCRIT 32.9 % (36.0-47.0); HEMOGLOBIN 10.8 g/dl (12.0-15.5); MEAN CORPUSCULAR HEMOGLOBIN 29.8 pg (27.0-33.0); MEAN CORPUSCULAR HGB CONC 32.8 g/dl (32.0-36.5); MEAN CORPUSCULAR VOLUME 90.6 fl (80.0-96.0); PLATELET COUNT, AUTOMATED 187 10^3/uL (150-450); RED BLOOD COUNT 3.63 10^6/uL (4.00-5.40); WHITE BLOOD COUNT 5.9 10^3/uL (4.0-10.0)
[2024-04-01 14:38] LABS: TOTAL PROTEIN,RANDOM URINE 16.3 MG/DL (0.0-14.0)
[2024-04-01 14:39] LABS: URIC ACID 3.8 MG/DL (3.1-7.8)
[2024-04-01 14:41] LABS: LDH LACTATE DEHYDROGENASE 130 U/L (120-246)
[2024-04-01 14:43] LABS: ALT/SGPT 12 U/L (7.0-40); AST/SGOT 12 U/L (<34); BILIRUBIN,TOTAL 0.2 MG/DL (0.3-1.2); CREATININE FOR GFR 0.47 MG/DL (0.55-1.30); GLOMERULAR FILTRATION RATE > 60.0 (>60)
[2024-04-01 14:43] LABS: CREATININE,RANDOM URINE 186.5 MG/DL
[2024-04-01] MEDS: BETAMETHASONE SOLUSPAN 6MG/ML 5ML VIAL IM SCH (16:06)
== END 2024-04-01 18:18 | disposition home or self-care (01) ==
LOC: M LDO 12:36
PROVIDERS: ATTEND Advanced Practice Midwife
DX: O10.013 Pre-existing essential hypertension complicating pregnancy, third trimester (principal); O99.343 Other mental disorders complicating pregnancy, third trimester; O99.353 Diseases of the nervous system complicating pregnancy, third trimester; F31.89 Other bipolar disorder; F41.8 Other specified anxiety disorders; G40.309 Generalized idiopathic epilepsy and epileptic syndromes, not intractable, without status epilepticus; Z79.82 Long term (current) use of aspirin; Z3A.34 34 weeks gestation of pregnancy
CPT/HCPCS: 36415; 59025; 82247; 82570; 83615; 84156; 84450; 84460; 84550; 85027; 96372; G0463; J0702

== ENCOUNTER 2024-04-02 15:49 | Outpatient (CLI) | payer OTHER, MEDICAID ==
[~2024-04-02] VITALS: Ht 157.5 cm; Wt 97.9 kg
[2024-04-02] MEDS: BETAMETHASONE SOLUSPAN 6MG/ML 5ML VIAL IM STA (16:00)
[2024-04-02 16:07] VITALS: BP 117/76
== END 2024-04-02 16:23 | disposition home or self-care (01) ==
LOC: M LDO 15:49
PROVIDERS: ATTEND Obstetrics & Gynecology
DX: O10.013 Pre-existing essential hypertension complicating pregnancy, third trimester (principal); Z3A.34 34 weeks gestation of pregnancy
CPT/HCPCS: 96372; J0702

== ENCOUNTER 2024-04-09 10:42 | Outpatient (CLI) | payer MEDICAID, OTHER ==
[~2024-04-09] VITALS: Ht 157.5 cm; Wt 98.9 kg
[~2024-04-09 10:42] MED LIST changes: -ACET500P3 PO
[2024-04-09 11:09] VITALS: BP 128/67
[2024-04-09] MEDS ORDERED: ACET500P3 PO (11:18)
[2024-04-09] MEDS: FIORICET TAB PO ONE (12:17)
[2024-04-09 12:21] VITALS: BP 139/74
[2024-04-09 12:21] LABS: HEMATOCRIT 34.1 % (36.0-47.0); MEAN CORPUSCULAR HEMOGLOBIN 28.9 pg (27.0-33.0); MEAN CORPUSCULAR HGB CONC 32.3 g/dl (32.0-36.5); MEAN CORPUSCULAR VOLUME 89.7 fl (80.0-96.0); PLATELET COUNT, AUTOMATED 170 10^3/uL (150-450); WHITE BLOOD COUNT 6.7 10^3/uL (4.0-10.0)
[2024-04-09 12:49] LABS: URIC ACID 4.3 MG/DL (3.1-7.8)
[2024-04-09 12:51] LABS: LDH LACTATE DEHYDROGENASE 162 U/L (120-246)
[2024-04-09 12:52] LABS: ALT/SGPT 14 U/L (7.0-40); AST/SGOT 11 U/L (<34); BILIRUBIN,TOTAL 0.3 MG/DL (0.3-1.2); CREATININE FOR GFR 0.58 MG/DL (0.55-1.30); GLOMERULAR FILTRATION RATE > 60.0 (>60)
[2024-04-09 13:00] LABS: TOTAL PROTEIN,RANDOM URINE 27.2 MG/DL (0.0-14.0)
[2024-04-09 13:21] VITALS: BP 145/71
== END 2024-04-09 13:55 | disposition home or self-care (01) ==
LOC: M LDO 10:42
PROVIDERS: ATTEND Advanced Practice Midwife
DX: O47.03 False labor before 37 completed weeks of gestation, third trimester (principal); O10.013 Pre-existing essential hypertension complicating pregnancy, third trimester; O09.213 Supervision of pregnancy with history of pre-term labor, third trimester; O99.353 Diseases of the nervous system complicating pregnancy, third trimester; G40.309 Generalized idiopathic epilepsy and epileptic syndromes, not intractable, without status epilepticus; O99.343 Other mental disorders complicating pregnancy, third trimester; F41.8 Other specified anxiety disorders; F31.89 Other bipolar disorder; Z3A.35 35 weeks gestation of pregnancy
CPT/HCPCS: 36415; 59025; 82247; 82570; 83615; 84156; 84450; 84460; 84550; 85027; G0463

== ENCOUNTER → 2024-04-09 | Outpatient (REF) | payer OTHER, MEDICAID ==
[~2024-04-09] MED LIST changes: +ACET500P3 PO
[2024-04-09 13:56] LABS: HEMATOCRIT 33.8 % (36.0-47.0); MEAN CORPUSCULAR HEMOGLOBIN 28.9 pg (27.0-33.0); MEAN CORPUSCULAR HGB CONC 32.5 g/dl (32.0-36.5); MEAN CORPUSCULAR VOLUME 88.7 fl (80.0-96.0); PLATELET COUNT, AUTOMATED 175 10^3/uL (150-450); RED BLOOD COUNT 3.81 10^6/uL (4.00-5.40); WHITE BLOOD COUNT 6.8 10^3/uL (4.0-10.0)
[2024-04-09 14:27] LABS: HIV 1&2 SCREEN NEGATIVE (NEGATIVE)
[2024-04-09 14:35] LABS: HEPATITIS C VIRUS ABY INDEX < 0.02 INDEX (<0.8)
== END ==
LOC: M LABDRAWP 12:39
PROVIDERS: ATTEND Obstetrics & Gynecology
DX: Z34.93 Encounter for supervision of normal pregnancy, unspecified, third trimester (principal); O10.919 Unspecified pre-existing hypertension complicating pregnancy, unspecified trimester

== ENCOUNTER 2024-04-14 16:09 | Outpatient (CLI) | payer MEDICAID, OTHER ==
[~2024-04-14] VITALS: Ht 157.5 cm; Wt 101.6 kg
[~2024-04-14 16:09] MED LIST changes: +ACET500P3 PO
[2024-04-14] MEDS ORDERED: HOME MED LIST COMPLETE! XX SCH (16:25)
[2024-04-14 16:30] VITALS: BP 125/72
[2024-04-14 16:46] VITALS: BP 119/72
[2024-04-14 17:01] VITALS: BP 114/56
[2024-04-14] MEDS: FIORICET TAB PO ONE ×2 (17:29→18:48)
[2024-04-14] MEDS: diphenhydrAMINE 50MG CAP PO ONE (18:48)
== END 2024-04-14 18:50 | disposition home or self-care (01) ==
LOC: M LDO 16:09
PROVIDERS: ATTEND Advanced Practice Midwife
DX: O10.013 Pre-existing essential hypertension complicating pregnancy, third trimester (principal); O26.893 Other specified pregnancy related conditions, third trimester; R51.9 Headache, unspecified; O99.353 Diseases of the nervous system complicating pregnancy, third trimester; O99.343 Other mental disorders complicating pregnancy, third trimester; O09.213 Supervision of pregnancy with history of pre-term labor, third trimester; G40.309 Generalized idiopathic epilepsy and epileptic syndromes, not intractable, without status epilepticus; F31.89 Other bipolar disorder; F41.8 Other specified anxiety disorders; Z87.59 Personal history of other complications of pregnancy, childbirth and the puerperium; Z3A.36 36 weeks gestation of pregnancy
CPT/HCPCS: 59025; G0463

== ENCOUNTER 2024-04-21 08:31 | Inpatient (IN) | payer OTHER, MEDICAID ==
[~2024-04-21] VITALS: Ht 157.5 cm; Wt 106.9 kg
[2024-04-21] VITALS (12 sets, daily range): BP systolic 119–146; BP diastolic 56–95
[2024-04-21 10:10] LABS: HEMOGLOBIN 10.9 g/dl (12.0-15.5); MEAN CORPUSCULAR HEMOGLOBIN 28.8 pg (27.0-33.0); MEAN CORPUSCULAR HGB CONC 32.1 g/dl (32.0-36.5); MEAN CORPUSCULAR VOLUME 89.9 fl (80.0-96.0); PLATELET COUNT, AUTOMATED 163 10^3/uL (150-450); RED BLOOD COUNT 3.78 10^6/uL (4.00-5.40); WHITE BLOOD COUNT 6.1 10^3/uL (4.0-10.0)
[2024-04-21 10:50] LABS: HEPATITIS B SURFACE ANTIBODY NEGATIVE (POSITIVE)
[2024-04-21] MEDS ORDERED: OXYTOCIN DRIP 30 UNITS in IV 1 EA IV PRN (11:05)
[2024-04-21] MEDS ORDERED: TRANEXAMIC ACID INJection 1,000 MG in NS 100 ML IV PRN (11:05)
[2024-04-21] MEDS ORDERED: METHYLERGONOVINE MALEATE 0.2MG/ML 1ML VIAL IM PRN (11:05)
[2024-04-21] MEDS ORDERED: CARBOPROST TROMETHAMINE 250 MCG/ML AMP IM PRN (11:05)
[2024-04-21] MEDS ORDERED: LIDOCAINE 1% MDV 20ML VIAL INFIL PRN (11:05)
[2024-04-21] MEDS: LACTATED RINGER'S 1000 ML IV STA (11:05)
[2024-04-21] MEDS ORDERED: OXYTOCIN INJ 10UNITS/ML 1ML VIAL IM PRN (11:05)
[2024-04-21 11:23] LABS: HEPATITIS C VIRUS ABY INDEX < 0.02 INDEX (<0.8)
[2024-04-21] MEDS: ACETAMINOPHEN 500 MG TAB PO PRN (11:28)
[2024-04-21 12:02] LABS: HEMOGLOBIN A1c 5.3 % (4.0-6.0)
[2024-04-21] MEDS: miSOPROStol 50MCG 1/2 TABLET PO SCH (12:22)
[2024-04-21 12:44] LABS: TOTAL PROTEIN,RANDOM URINE 36.8 MG/DL (0.0-14.0)
[2024-04-21 12:49] LABS: CREATININE,RANDOM URINE 222.8 MG/DL
[2024-04-21] MEDS: CALCIUM CARBONATE 500 MG CHEW U/D PO PRN (13:25)
[2024-04-21] MEDS: PROMETHAZINE 25MG/ML 1ML VIAL IV ONE (19:32)
[2024-04-21] MEDS: BUTORPHANOL 2 MG/ML 1ML VIAL IV ONE (19:38)
[2024-04-21] MEDS: LABETALOL 100MG TAB PO SCH (20:44)
[2024-04-21] MEDS: levETIRAcetam 250MG TABLET (KEPPRA) PO SCH (20:45)
[2024-04-22] VITALS (11 sets, daily range): BP systolic 125–160; BP diastolic 60–93; O2SAT 96
[2024-04-22] MEDS: OXYTOCIN DRIP 30 UNITS in IV 1 EA IV SCH (09:52)
[2024-04-22] MEDS: LR 1,000 ML IV SCH (09:52)
[2024-04-22] MEDS: ARIPiprazole 15 MG TAB (AbiLIFY) PO SCH (09:56)
[2024-04-22] MEDS ORDERED: EPIDURAL/PCA KEYS XX PRN (15:15)
[2024-04-22] MEDS ORDERED: ONDANSETRON 4MG 2ML VIAL IV PRN (15:15)
[2024-04-22] MEDS ORDERED: ePHEDrine SULFATE 25 MG/5 ML(5MG/ML) SYRINGE IVP PRN (15:15)
[2024-04-22] MEDS ORDERED: LR 500 ML IV PRN (15:15)
[2024-04-22] MEDS ORDERED: diphenhydrAMINE 50MG/ML VIAL IV PRN (15:15)
[2024-04-22] MEDS ORDERED: NALOXONE INJ 0.4MG/1ML VIAL IV PRN (15:15)
[2024-04-22] MEDS: FENTANYL/ROPIVACAINE/NACL BAG 100 ML EPIDURAL SCH (15:52)
[2024-04-22] MEDS ORDERED: IBUPROFEN 600MG TAB PO PRN (18:25)
[2024-04-22] MEDS ORDERED: DIBUCAINE 1% OINTMENT 30GM TOP PRN (18:25)
[2024-04-22] MEDS ORDERED: DOCUSATE SODIUM 100MG CAPSULE PO PRN (18:25)
[2024-04-22] MEDS ORDERED: METHYLERGONOVINE MALEATE 0.2 MG TAB PO PRN (18:25)
[2024-04-22] MEDS: ACETAMINOPHEN 500 MG TAB PO PRN (19:49)
[2024-04-22] MEDS: LABETALOL 100MG TAB PO SCH (20:10)
[2024-04-22] MEDS: levETIRAcetam 250MG TABLET (KEPPRA) PO SCH (20:11)
[2024-04-22] MEDS: IBUPROFEN 800 MG TAB PO PRN (21:20)
[2024-04-23] VITALS (7 sets, daily range): BP systolic 119–151; BP diastolic 55–71; O2SAT 97–99
[2024-04-23] MEDS: ACETAMINOPHEN 325 MG TAB PO PRN (02:11)
[2024-04-23] MEDS: PRENATAL VITAMINS CHEWABLE TABLET PO SCH (08:38)
[2024-04-23] MEDS: ARIPiprazole 15 MG TAB (AbiLIFY) PO SCH (10:19)
[2024-04-23] MEDS: FOLIC ACID 1MG TAB PO SCH (10:19)
[2024-04-24 02:00] VITALS: BP 104/58; O2SAT 98
[2024-04-24 06:00] VITALS: BP 127/57; O2SAT 98
[2024-04-24] MEDS: RHOGAM 300MCG (1500IU) INJ IM SCH (07:53)
[2024-04-24] MEDS ORDERED: MEASLES,MUMPS,RUBELLA VACCINE INJ (MMR-II) SC.IMMUN ONE (09:00)
[2024-04-24 09:44] VITALS: BP 101/57
[2024-04-24 09:45] VITALS: BP 101/57; O2SAT 98
[2024-04-24 09:55] VITALS: BP 101/57; O2SAT 98
== END 2024-04-24 13:00 | disposition home or self-care (01) | DRG 560 ==
LOC: M LDI 08:31 → M OBS 04-22 20:53
PROVIDERS: ADMIT Specialist; ATTEND Specialist
PROC: 3E0P7GC Introduction of Other Therapeutic Substance into Female Reproductive, Via Natural or Artificial Opening (ICD-10-PCS; 2024-04-21)
PROC: 10E0XZZ Delivery of Products of Conception, External Approach (ICD-10-PCS; principal; 2024-04-22)
PROC: 10907ZC Drainage of Amniotic Fluid, Therapeutic from Products of Conception, Via Natural or Artificial Opening (ICD-10-PCS; 2024-04-22)
DX: O10.02 Pre-existing essential hypertension complicating childbirth (principal); Z37.0 Single live birth; Z3A.37 37 weeks gestation of pregnancy